=== PATIENT | male | born 1940 | race Caucasian/White ===

== ENCOUNTER 2016-09-23 14:29 | Inpatient (IN) | payer MEDICARE, BC ==
[~2016-09-23] VITALS: Ht 180.3 cm; Wt 89.0 kg
[~2016-09-23 14:29] MED LIST: AMIODARONE HCL200 MG PO; CHILDRENS CHEWA81 MG PO; COREG25 MG PO; CYTOMEL25 MCG PO; FLONASE 0.05% N16 GM; IMODIUM2 MG PO; PANTOPRAZOLE SO40 MG PO; QUESTRAN PACKET4 GM PO; SINGULAIR10 MG PO; VALIUM5 MG PO; VANCOCIN HCL125 MG PO; ZYRTEC10 MG PO
[2016-09-23 21:22] LABS: URINE BACTERIA TRACE (NONE SEEN); URINE BILIRUBIN NEGATIVE (NEGATIVE); URINE BLOOD TRACE (NEGATIVE); URINE GLUCOSE (UA) NORMAL (NORMAL); URINE KETONE NEGATIVE (NEGATIVE); URINE LEUKOCYTE ESTERASE TRACE (NEGATIVE); URINE MUCUS TRACE; URINE NITRATE NEGATIVE (NEGATIVE); URINE PROTEIN TRACE (NEGATIVE); URINE RBC 0-5 /[HPF] (0-2); URINE WBC 0-5 /[HPF] (0-3); UROBILINOGEN NORMAL mg/dL (<1.0)
[2016-09-24 07:03] LABS: HEMATOCRIT 28.3 % (40-51); HEMOGLOBIN 8.6 g/dL (13.7-17.5); MEAN CORPUSCULAR HGB CONC 30.4 g/dL (32.0-36.0); MEAN CORPUSCULAR VOLUME 102.2 fL (79-92); MEAN PLATELET VOLUME 11.5 fl (7.5-11.5); RED BLOOD COUNT 2.77 x10_6/uL (4.6-6.1); WHITE BLOOD COUNT 11.8 x10_3/uL (4.2-9.1)
[2016-09-24 07:21] LABS: ALBUMIN 2.6 gm/dL (3.4-5.0); BILIRUBIN,TOTAL 0.82 mg/dL (0.0-1.0); CALCIUM 7.7 mg/dL (8.7-10.7); CREATININE 2.2 mg/dL (0.6-1.3); TOTAL PROTEIN 5.3 gm/dL (6.4-8.2)
[2016-09-24 07:29] LABS: POTASSIUM 5.2 mmol/L (3.5-5.1)
[2016-09-26 06:35] LABS: HEMATOCRIT 27.6 % (40-51); HEMOGLOBIN 8.6 g/dL (13.7-17.5); MEAN CORPUSCULAR HEMOGLOBIN 31.9 pg (27.0-33.0); MEAN CORPUSCULAR HGB CONC 31.2 g/dL (32.0-36.0); MEAN CORPUSCULAR VOLUME 102.2 fL (79-92); MEAN PLATELET VOLUME 11.5 fl (7.5-11.5); RED BLOOD COUNT 2.7 x10_6/uL (4.6-6.1); RED CELL DISTRIBUTION WIDTH 17.6 % (11.6-14.4); WHITE BLOOD COUNT 9.6 x10_3/uL (4.2-9.1)
[2016-09-26 06:55] LABS: CALCIUM 7.6 mg/dL (8.7-10.7); CREATININE 2.1 mg/dL (0.6-1.3); POTASSIUM 5.4 mmol/L (3.5-5.1)
[2016-09-29 09:03] LABS: CALCIUM 7.7 mg/dL (8.7-10.7); CREATININE 2.2 mg/dL (0.6-1.3); POTASSIUM 4.5 mmol/L (3.5-5.1)
[2016-09-30 07:36] LABS: HEMATOCRIT 28.2 % (40-51); HEMOGLOBIN 8.6 g/dL (13.7-17.5); MEAN CORPUSCULAR HEMOGLOBIN 31.6 pg (27.0-33.0); MEAN CORPUSCULAR HGB CONC 30.5 g/dL (32.0-36.0); MEAN CORPUSCULAR VOLUME 103.7 fL (79-92); MEAN PLATELET VOLUME 11.1 fl (7.5-11.5); RED BLOOD COUNT 2.72 x10_6/uL (4.6-6.1); RED CELL DISTRIBUTION WIDTH 18.6 % (11.6-14.4)
[2016-09-30 07:52] LABS: CALCIUM 7.8 mg/dL (8.7-10.7); CREATININE 2.1 mg/dL (0.6-1.3); POTASSIUM 4.8 mmol/L (3.5-5.1)
[2016-10-03 07:10] LABS: HEMATOCRIT 29.9 % (40-51); MEAN CORPUSCULAR HEMOGLOBIN 31.6 pg (27.0-33.0); MEAN CORPUSCULAR HGB CONC 30.1 g/dL (32.0-36.0); MEAN CORPUSCULAR VOLUME 104.9 fL (79-92); MEAN PLATELET VOLUME 10.9 fl (7.5-11.5); RED BLOOD COUNT 2.85 x10_6/uL (4.6-6.1); RED CELL DISTRIBUTION WIDTH 18.9 % (11.6-14.4); WHITE BLOOD COUNT 8.1 x10_3/uL (4.2-9.1)
[2016-10-03 07:16] LABS: CALCIUM 7.8 mg/dL (8.7-10.7); CREATININE 2.1 mg/dL (0.6-1.3); POTASSIUM 4.6 mmol/L (3.5-5.1)
[2016-10-07 06:44] LABS: HEMATOCRIT 30.3 % (40-51); HEMOGLOBIN 9.2 g/dL (13.7-17.5); MEAN CORPUSCULAR HEMOGLOBIN 32.3 pg (27.0-33.0); MEAN CORPUSCULAR HGB CONC 30.4 g/dL (32.0-36.0); MEAN CORPUSCULAR VOLUME 106.3 fL (79-92); MEAN PLATELET VOLUME 10.7 fl (7.5-11.5); RED BLOOD COUNT 2.85 x10_6/uL (4.6-6.1); RED CELL DISTRIBUTION WIDTH 18.1 % (11.6-14.4); WHITE BLOOD COUNT 7.6 x10_3/uL (4.2-9.1)
[2016-10-07 06:53] LABS: CALCIUM 7.8 mg/dL (8.7-10.7); CREATININE 2.2 mg/dL (0.6-1.3); POTASSIUM 4.6 mmol/L (3.5-5.1)
[2016-10-10 06:54] LABS: HEMATOCRIT 32.2 % (40-51); HEMOGLOBIN 9.8 g/dL (13.7-17.5); MEAN CORPUSCULAR HGB CONC 30.4 g/dL (32.0-36.0); MEAN CORPUSCULAR VOLUME 105.2 fL (79-92); MEAN PLATELET VOLUME 10.5 fl (7.5-11.5); RED BLOOD COUNT 3.06 x10_6/uL (4.6-6.1); RED CELL DISTRIBUTION WIDTH 17.3 % (11.6-14.4); WHITE BLOOD COUNT 7.3 x10_3/uL (4.2-9.1)
[2016-10-10 07:06] LABS: CALCIUM 8.1 mg/dL (8.7-10.7); CREATININE 2.1 mg/dL (0.6-1.3); POTASSIUM 4.6 mmol/L (3.5-5.1)
[2016-10-14 07:26] LABS: HEMATOCRIT 31.1 % (40-51); HEMOGLOBIN 9.9 g/dL (13.7-17.5); MEAN CORPUSCULAR HEMOGLOBIN 33.1 pg (27.0-33.0); MEAN CORPUSCULAR HGB CONC 31.8 g/dL (32.0-36.0); MEAN PLATELET VOLUME 10.5 fl (7.5-11.5); RED BLOOD COUNT 2.99 x10_6/uL (4.6-6.1); RED CELL DISTRIBUTION WIDTH 16.7 % (11.6-14.4); WHITE BLOOD COUNT 6.4 x10_3/uL (4.2-9.1)
[2016-10-14 07:37] LABS: POTASSIUM 4.5 mmol/L (3.5-5.1)
[2016-10-17 06:42] LABS: HEMATOCRIT 30.9 % (40-51); HEMOGLOBIN 9.8 g/dL (13.7-17.5); MEAN CORPUSCULAR HEMOGLOBIN 32.5 pg (27.0-33.0); MEAN CORPUSCULAR HGB CONC 31.7 g/dL (32.0-36.0); MEAN CORPUSCULAR VOLUME 102.3 fL (79-92); RED BLOOD COUNT 3.02 x10_6/uL (4.6-6.1); RED CELL DISTRIBUTION WIDTH 15.9 % (11.6-14.4); WHITE BLOOD COUNT 6.8 x10_3/uL (4.2-9.1)
[2016-10-17 06:47] LABS: CALCIUM 7.8 mg/dL (8.7-10.7); CREATININE 1.9 mg/dL (0.6-1.3); POTASSIUM 4.4 mmol/L (3.5-5.1)
[2016-10-21 07:22] LABS: HEMATOCRIT 33.2 % (40-51); MEAN CORPUSCULAR HEMOGLOBIN 31.2 pg (27.0-33.0); MEAN CORPUSCULAR HGB CONC 30.1 g/dL (32.0-36.0); MEAN CORPUSCULAR VOLUME 103.4 fL (79-92); MEAN PLATELET VOLUME 11.1 fl (7.5-11.5); RED BLOOD COUNT 3.21 x10_6/uL (4.6-6.1); RED CELL DISTRIBUTION WIDTH 15.9 % (11.6-14.4); WHITE BLOOD COUNT 8.5 x10_3/uL (4.2-9.1)
[2016-10-21 07:31] LABS: CALCIUM 8.3 mg/dL (8.7-10.7); CREATININE 2.1 mg/dL (0.6-1.3); POTASSIUM 4.7 mmol/L (3.5-5.1)
[2016-10-24 06:34] LABS: HEMATOCRIT 31.7 % (40-51); HEMOGLOBIN 9.9 g/dL (13.7-17.5); MEAN CORPUSCULAR HEMOGLOBIN 31.8 pg (27.0-33.0); MEAN CORPUSCULAR HGB CONC 31.2 g/dL (32.0-36.0); MEAN CORPUSCULAR VOLUME 101.9 fL (79-92); MEAN PLATELET VOLUME 10.9 fl (7.5-11.5); RED BLOOD COUNT 3.11 x10_6/uL (4.6-6.1); RED CELL DISTRIBUTION WIDTH 15.3 % (11.6-14.4); WHITE BLOOD COUNT 7.3 x10_3/uL (4.2-9.1)
[2016-10-24 06:51] LABS: CALCIUM 7.9 mg/dL (8.7-10.7); POTASSIUM 4.5 mmol/L (3.5-5.1)
[2016-10-28 07:07] LABS: HEMOGLOBIN 10.3 g/dL (13.7-17.5); MEAN CORPUSCULAR HEMOGLOBIN 31.8 pg (27.0-33.0); MEAN CORPUSCULAR HGB CONC 31.2 g/dL (32.0-36.0); MEAN CORPUSCULAR VOLUME 101.9 fL (79-92); RED BLOOD COUNT 3.24 x10_6/uL (4.6-6.1); RED CELL DISTRIBUTION WIDTH 15.1 % (11.6-14.4); WHITE BLOOD COUNT 7.9 x10_3/uL (4.2-9.1)
[2016-10-28 07:22] LABS: CREATININE 2.3 mg/dL (0.6-1.3); POTASSIUM 4.8 mmol/L (3.5-5.1)
[2016-10-31 06:38] LABS: CALCIUM 8.1 mg/dL (8.7-10.7); CREATININE 2.3 mg/dL (0.6-1.3); POTASSIUM 4.9 mmol/L (3.5-5.1)
[2016-10-31 06:39] LABS: HEMATOCRIT 32.6 % (40-51); HEMOGLOBIN 10.1 g/dL (13.7-17.5); MEAN CORPUSCULAR HEMOGLOBIN 31.3 pg (27.0-33.0); MEAN CORPUSCULAR VOLUME 100.9 fL (79-92); MEAN PLATELET VOLUME 10.9 fl (7.5-11.5); RED BLOOD COUNT 3.23 x10_6/uL (4.6-6.1); RED CELL DISTRIBUTION WIDTH 15.2 % (11.6-14.4); WHITE BLOOD COUNT 7.8 x10_3/uL (4.2-9.1)
[2016-11-04 07:30] LABS: HEMATOCRIT 32.1 % (40-51); MEAN CORPUSCULAR HEMOGLOBIN 31.2 pg (27.0-33.0); MEAN CORPUSCULAR HGB CONC 31.2 g/dL (32.0-36.0); MEAN PLATELET VOLUME 11.3 fl (7.5-11.5); RED BLOOD COUNT 3.21 x10_6/uL (4.6-6.1); RED CELL DISTRIBUTION WIDTH 14.9 % (11.6-14.4); WHITE BLOOD COUNT 7.1 x10_3/uL (4.2-9.1)
[2016-11-04 07:42] LABS: CALCIUM 7.8 mg/dL (8.7-10.7); CREATININE 2.2 mg/dL (0.6-1.3); POTASSIUM 4.6 mmol/L (3.5-5.1)
[2016-11-07 07:43] LABS: HEMOGLOBIN 10.1 g/dL (13.7-17.5); MEAN CORPUSCULAR HEMOGLOBIN 31.4 pg (27.0-33.0); MEAN CORPUSCULAR HGB CONC 31.6 g/dL (32.0-36.0); MEAN CORPUSCULAR VOLUME 99.4 fL (79-92); MEAN PLATELET VOLUME 11.3 fl (7.5-11.5); RED BLOOD COUNT 3.22 x10_6/uL (4.6-6.1); WHITE BLOOD COUNT 7.3 x10_3/uL (4.2-9.1)
[2016-11-07 07:44] LABS: CREATININE 2.3 mg/dL (0.6-1.3); POTASSIUM 4.2 mmol/L (3.5-5.1)
== END 2016-11-08 12:58 | disposition home or self-care (01) | DRG 558 ==
LOC: SWING 14:29
PROVIDERS: ADMIT Family Medicine
DX: M62.50 Muscle wasting and atrophy, not elsewhere classified, unspecified site (principal); I13.0 Hypertensive heart and chronic kidney disease with heart failure and stage 1 through stage 4 chronic kidney disease, or unspecified chronic kidney disease; S42.202D Unspecified fracture of upper end of left humerus, subsequent encounter for fracture with routine healing; S52.92XD Unspecified fracture of left forearm, subsequent encounter for closed fracture with routine healing; W18.09XD Striking against other object with subsequent fall, subsequent encounter; N18.3 Chronic kidney disease, stage 3 (moderate); I50.9 Heart failure, unspecified; D63.1 Anemia in chronic kidney disease; K21.9 Gastro-esophageal reflux disease without esophagitis; R11.0 Nausea; J44.9 Chronic obstructive pulmonary disease, unspecified; L89.321 Pressure ulcer of left buttock, stage 1; N40.0 Benign prostatic hyperplasia without lower urinary tract symptoms; E03.9 Hypothyroidism, unspecified; I25.10 Atherosclerotic heart disease of native coronary artery without angina pectoris; I25.2 Old myocardial infarction; Z86.73 Personal history of transient ischemic attack (TIA), and cerebral infarction without residual deficits; I48.91 Unspecified atrial fibrillation; Z95.810 Presence of automatic (implantable) cardiac defibrillator; K43.2 Incisional hernia without obstruction or gangrene; Z80.0 Family history of malignant neoplasm of digestive organs; Z87.891 Personal history of nicotine dependence; R53.1 Weakness; Z86.19 Personal history of other infectious and parasitic diseases; R19.7 Diarrhea, unspecified; Z79.899 Other long term (current) drug therapy; G47.00 Insomnia, unspecified
CPT/HCPCS: 36415; 71020; 73030; 80048; 80053; 81001; 83880; 87070; 87324; 97110; 97116; 97530; 97535; 99070